=== PATIENT | male | born 1955 | race Caucasian/White ===

== ENCOUNTER → 2016-03-19 | Outpatient (REF) | payer OTHER | LOC: LAB 10:25 | PROVIDERS: ATTEND Family Medicine | DX: E78.6 Lipoprotein deficiency (principal) | CPT/HCPCS: 80061 ==

== ENCOUNTER → 2016-03-29 | Outpatient (REF) | payer OTHER | LOC: LAB 09:07 | PROVIDERS: ATTEND Family Medicine | DX: Z13.1 Encounter for screening for diabetes mellitus (principal) | CPT/HCPCS: 83036 ==

== ENCOUNTER → 2016-04-02 | Outpatient (REF) | payer OTHER ==
[2016-04-02 09:03] LABS: ALBUMIN 3.9 g/dL (3.4-5.0); CALCULATED IONIZED CALCIUM 4.1 mg/dL (3.8-4.6); TOTAL PROTEIN 6.9 g/dL (6.4-8.5)
== END ==
LOC: LAB 08:30
PROVIDERS: ATTEND Family Medicine
DX: Z13.1 Encounter for screening for diabetes mellitus (principal)
CPT/HCPCS: 80053